=== PATIENT | female | born 1990 | race Caucasian/White ===

== ENCOUNTER 2019-06-18 15:01 | Emergency (ER) | payer OTHER ==
[~2019-06-18] VITALS: Ht 160 cm; Wt 77.3 kg
[~2019-06-18 15:01] MED LIST: CEPH-357 PO; HYDR1TAB PO
[2019-06-18 15:07] VITALS: BP 127/71
[2019-06-18] MEDS ORDERED: HYDR-4383 PO (16:51)
--- NOTE | 2019-06-18 16:53 | NUR ---
Vascular study in progress at this time.
== END 2019-06-18 17:54 | disposition home or self-care (01) ==
LOC: ER 15:02
DX: M79.604 Pain in right leg (principal); Z90.710 Acquired absence of both cervix and uterus
CPT/HCPCS: 93971; 99284